=== PATIENT | female | born 1940 | race Caucasian/White ===

== ENCOUNTER → 2023-06-27 08:47 | Outpatient (REF) | payer OTHER, SELFPAY | LOC: HWRAD 08:47 | PROVIDERS: ATTENDING PHYSICIAN Urology; FAMILY PHYSICIAN Family Medicine | DX: R31.9 Hematuria, unspecified (principal); N39.0 Urinary tract infection, site not specified | CPT/HCPCS: 76770; 76856 ==

== ENCOUNTER → 2023-07-28 07:56 | Outpatient (REF) | payer OTHER, SELFPAY | LOC: HWRAD 07:56 | PROVIDERS: ATTENDING PHYSICIAN Internal Medicine Critical Care Medicine; FAMILY PHYSICIAN Family Medicine | DX: J84.9 Interstitial pulmonary disease, unspecified (principal) | CPT/HCPCS: 71250 ==

== ENCOUNTER → 2023-08-05 07:03 | Outpatient (REF) | payer OTHER, SELFPAY | LOC: HWRCS 07:03 | PROVIDERS: ATTENDING PHYSICIAN Internal Medicine Critical Care Medicine; FAMILY PHYSICIAN Family Medicine | DX: R06.02 Shortness of breath (principal) | CPT/HCPCS: 93306 ==

== ENCOUNTER → 2024-01-19 06:56 | Outpatient (REF) | payer OTHER, SELFPAY | LOC: HWRAD 06:56 | PROVIDERS: ATTENDING PHYSICIAN Internal Medicine Critical Care Medicine; FAMILY PHYSICIAN Family Medicine | DX: J84.9 Interstitial pulmonary disease, unspecified (principal) | CPT/HCPCS: 71250 ==

== ENCOUNTER → 2024-02-07 07:16 | Outpatient (REF) | payer OTHER, SELFPAY | LOC: DHCBC/DCA 07:16 | PROVIDERS: ATTENDING PHYSICIAN Nurse Practitioner; FAMILY PHYSICIAN Family Medicine | DX: R06.02 Shortness of breath (principal) | CPT/HCPCS: 78452; 93017; A9500; J2785 ==

== ENCOUNTER → 2024-06-14 06:59 | Outpatient (REF) | payer OTHER, SELFPAY | LOC: HWRAD 06:59 | PROVIDERS: ATTENDING PHYSICIAN Internal Medicine Critical Care Medicine; FAMILY PHYSICIAN Family Medicine | DX: J84.9 Interstitial pulmonary disease, unspecified (principal) | CPT/HCPCS: 71046 ==

== ENCOUNTER → 2024-06-18 07:54 | Outpatient (REF) | payer OTHER, SELFPAY | LOC: RST 07:54 | PROVIDERS: ATTENDING PHYSICIAN Internal Medicine Critical Care Medicine; FAMILY PHYSICIAN Family Medicine | DX: J84.10 Pulmonary fibrosis, unspecified (principal); K21.9 Gastro-esophageal reflux disease without esophagitis; R13.10 Dysphagia, unspecified | CPT/HCPCS: 74230; 92611 ==

== ENCOUNTER → 2024-07-23 07:25 | Outpatient (REF) | payer OTHER, SELFPAY | LOC: HWRAD 07:25 | PROVIDERS: ATTENDING PHYSICIAN Family Medicine | DX: F19.20 Other psychoactive substance dependence, uncomplicated (principal); M85.89 Other specified disorders of bone density and structure, multiple sites | CPT/HCPCS: 77080 ==

== ENCOUNTER → 2024-08-06 14:30 | Outpatient (REF) | payer OTHER, SELFPAY | LOC: HWRAD 14:30 | PROVIDERS: ATTENDING PHYSICIAN Physician Assistant Surgical; FAMILY PHYSICIAN Family Medicine | DX: M54.14 Radiculopathy, thoracic region (principal); M54.16 Radiculopathy, lumbar region | CPT/HCPCS: 72072; 72110 ==

== ENCOUNTER 2024-08-10 09:21 | Emergency (ER) | payer OTHER, SELFPAY ==
[2024-08-10 09:31] VITALS: BP 176/109
--- NOTE | 2024-08-10 10:09 | ED.GENMED ---
History of Present Illness
General
Chief Complaint: Back Pain
Source: patient
Exam Limitations: none
Time Seen by Provider: 08/10/24 09:56
Nursing documentation reviewed up to this point in time: agreed with
History of Present Illness
History of Present Illness:
84-year-old female with history of interstitial lung disease, overactive bladder, spinal fusion 2019 L3, 4, 5, S1, neurostimulator, left hernia repair presents for back pain that started 6 days ago, no relief with her usual pain meds. Called her
pain management (Dr. Davalos's office) and ordered out pt xray yesterday showing compression fracture L1.. Had out pt xray yesterday showing compression fracture L1 age indeterminate. Filled rx for Oxycodone 5/325 #20 tabs yesterday, Tramadol HCl
50 mg #30 tabs on 08/07.
Pt denies fever/chills. Denies recent fall. Denies abdominal pain.
States pain is stabbing, 01/25 Her last oxycodone was at 1:30 AM.
She states she has been constipated in the past due to her narcotic pain medicine and this pain feels worse and that
Has been able to ambulate w cane as usual
Pt was in pain management with Dr. Davalos in 2019 after her spinal fusions. She was taking narcotics and is familiar with narcotic induced constipation. She has not needed narcotics for pain for past few years.
She did contact his office last week rx for Tramadol given with no relief (she's had total of 2 doses) and saw PA there 4 days ago and Prescribe Oxycodone/acetaminophen 325 q 12 hour which she started yesterday and has had 2 doses.
Past History
Past History
ED Past Medical History: GERD, Other (Chronic low back pain, spinal fusion 2019 L3, 4, 5, S1) and Other (Interstitial lung disease, prolapsed uterus)
ED Past Surgical History: Orthopedic (Left knee replacement, lumbar spinal surgery) and Other (Left inguinal hernia repair, spinal fusion 2019, right knee replacement, )
Social History
Tobacco: Non-smoker
Personal:
Living: with family
Employment: Retired
Family History
Family History: Other (Noncontributory)
Review of Systems
Review of Systems
Allergies reviewed?: Yes
All Other Systems: ROS reviewed and negative except as documented in HPI and ROS
Constitutional: Denies fever or chills
ABD/GI: Reports constipated; Denies abdominal pain, nausea, vomiting or diarrhea
: Denies dysuria, frequency, incontinence or difficulty voiding
Musculoskeletal: Reports back pain
Skin: Reports no symptoms
Neurological: Reports no symptoms
Phy Exam
Physical Exam
Physical Exam:
GENERAL: Mild distress due to back pain. A&Ox3.
CONSTITUTIONAL: Afebrile.
EYES: clear, conjunctivae normal
ENMT: moist mucus membranes
RESPIRATORY: Regular respirations, nonlabored, lungs clear.
CARDIOVASCULAR: Regular rate and rhythm, no murmurs, no rubs.
GI: Soft, nontender, normal BS
MUSCULOSKELETAL: Unable to evaluate due to pain. Deferred until pain med effective. Well perfused. No edema
SKIN: Warm, dry, pink
PSYCH: Anxious mood and affect. Well kept, interactive and appropriate
NEUROLOGIC: Awake, alert and oriented. No focal neurological deficits. Sensation intact and equal bilateral LE's.
Course
Orders/Labs/Results
Orders:
Orders
08/10/24 10:28
Morphine Sulfate 4 mg IV NOW STA
Ondansetron Injectable [Zofran] 4 mg IV NOW STA
08/10/24 10:54
Magnesium Citrate [Citroma] 300 ml PO ONCE ONE
08/10/24 13:02
Morphine Sulfate 2 mg IV NOW STA
Vital Signs
Initial and Last Documented VS:
Initial Vital Signs
Temp Pulse Resp BP Pulse Ox
97.6 F 95 16 176/109 97
08/10/24 09:31 08/10/24 09:31 08/10/24 09:31 08/10/24 09:31 08/10/24 09:31
Last Documented Vital Signs
Temp Pulse Resp BP Pulse Ox
97.6 F 74 16 148/76 99
08/10/24 09:31 08/10/24 12:46 08/10/24 12:46 08/10/24 12:46 08/10/24 12:46
MDM/Problems Addressed
Differential Diagnosis Includes:
New compression fx L1, discitis, herniated disc, constipation, AAA
MDM/Problems Addressed:
84-year-old female with history of interstitial lung disease, overactive bladder, spinal fusion 2019 L3, 4, 5, S1, neurostimulator, left hernia repair presents for back pain that started 6 days ago, no relief with her ususal pain meds. Called her
pain management (Dr. Davalos's office) and ordered out pt xray yesterday showing compression fracture L1. Filled rx for Oxycodone 5/325 #20 tabs yesterday, Tramadol HCl 50 mg #30 tabs on 08/07.
Pt denies fever/chills. Denies recent fall. Denies abdominal pain.
States pain is stabbing, 01/25 Her last oxycodone was at 1:30 AM.
She states she has been constipated in the past due to her narcotic pain medicine and this pain feels worse and that
Patient not anticoagulated. No infectious symptoms. No neurological deficits
Pt was in pain management with Dr. Davalos in 2019 after her spinal fusions. She was taking narcotics and is familiar with narcotic induced constipation. She has not needed narcotics for pain for past few years.
She did contact his office last week rx for Tramadol given with no relief (she's had total of 2 doses) and saw PA there 4 days ago and Prescribe Oxycodone/acetaminophen 325 q 12 hour which she started yesterday and has had 2 doses.
Patient is on chronic steroids 40 mg daily since May due to her lung disease, this may very well contribute to her compression fracture as she has had no recent trauma
Outpatient L-spine x-ray report from 08/06/2024 reviewed: IMPRESSION:
Postsurgical changes at L3, L4, L5, and S1.
Intact orthopedic hardware.
Severe osseous demineralization involving L3, L4, and L5, with prominent osseous lucency, which limits assessment for vertebral integrity.
Age indeterminate, though interval development of moderate superior endplate compression deformity of L1.
Advanced, progressive degenerative disc space narrowing at T11-12, T12-L1 and L2-3. L2-3 progressive endplate sclerosis.
Constipation with moderate colonic fecal burden.
10:45 AM:
Prior to pain medication, patient out of bed and ambulated to bathroom and back with her cane steadily with pain and review of above history, patient clearly needs more
Pain medication. She is afraid of becoming addicted. Explained to her and daughter the safe amounts to take
Her pain should be relieved somewhat after she has moved her bowels.
Rectal exam: very little stool in rectal vault, Given a dose of mag citrate here
11:15:
Message sent to orthopedic Dr. Long to get pt in sooner rather than later.
12:40 p.m.
Pt daughter Julia called and has appointment with Dr. Long on 08/15. She has #18 Hydrocodone left. Instructed to she could take in q8 hr if needed and two if needed forsevere pain.
She has Miralax at home she will use. She is taking a stool softener and will get more Mag Citrate if needed.
At discharge daughter informed me that Dr. Long's office called and had a cancellation so pt will be seen on 08/13
*Critical Care Note
Total Time (30-74mins, 75-104mins- exclusive of procedures): Not Applicable
ED Attending Note
-
Portions of this chart may have been created with voice recognition software.� Occasional wrong word or��sound alike� substitutions may have occurred due to the inherent limitations of voice recognition software.
Discharge Plan
Departure
Patient Disposition: Home (Routine Discharge)
Date of Disposition: 08/10/24
Time of Disposition: 12:22
Patient with high blood pressure during this ER visit?: No
Condition: Fair
Discharge Problem:
Compression fracture of L1 vertebra, Constipation
Instructions: Vertebral compression fracture, Vertebroplasty and kyphoplasty, Managing constipation from your medicines, Constipation in adults - ED discharge instructions
Prescriptions:
No Action
tiotropium bromide [Spiriva with HandiHaler] 18 MCG capsule, w/inhalation device
2 puff IH DAILY
fluticasone furoate-vilanterol [Breo Ellipta] 1 EACH blister with device
1 puff IH DAILY
multivitamin 1 EACH tablet
1 tab PO DAILY
cholecalciferol (vitamin D3) 2,000 UNIT tablet
2,000 unit PO DAILY
polyethylene glycol 3350 17 GRAMS powder in packet
1 packet PO DAILY
mupirocin 1 APPLIC ointment
1 applic intranasal BID Qty: 1 0RF
Patient Comments:
last dose was pm of 04/29/21
celecoxib 200 MG capsule
200 mg PO DAILY Qty: 30 0RF
Rx Instructions:
Take with food.
Do not take within 2 hours of Aspirin.
aspirin 325 MG tablet
325 mg PO DAILY Qty: 28 0RF
Rx Instructions:
Take daily x4 weeks for blood clot prevention.
magnesium hydroxide 30 ML suspension
30 ml PO DAILYPRN PRN (Reason: constipation) Qty: 7 0RF
Rx Instructions:
Take as needed for constipation unrelieved by Colace and Miralax.
pantoprazole 40 MG tablet,delayed release (DR/EC)
40 mg PO DAILY Qty: 30 0RF
Rx Instructions:
Take daily while on Celebrex.
docusate sodium 100 MG capsule
100 mg PO BID 0RF
acetaminophen 500 MG tablet
1,000 mg PO Q6H Qty: 60 0RF
Rx Instructions:
Do not exceed >4000 mg daily.
oxycodone 5 MG tablet
5 mg PO Q4HPRN PRN (Reason: moderate-severe pain) Qty: 30 0RF
Rx Instructions:
1 tab moderate pain or 2 if pain severe
Dx total joint replacement
ongoing therapy
Referrals:
Carmen Ayala MD [Family Provider] -
Alexei Ruiz MD [Active] - Next open appointment
Activity Restrictions/Additional Instructions:
As we discussed, you may take Hydrocodone 1 tablet every 8 hours instead of every 12 as recently ordered, if the pain is severe, take two tablets. You shuld have enough to get you through to your appointment
You may also take Tylenol (Acetaminophen 1000 mg twice a day)
Call Dr. Davalos's office if you need more pain medication.
Keep your appointment on 08/[address] Long.
You were given Magnesium Citrate here to help you move your bowels.
Interventions
Interventions:
*Risk Screen - Suicide Last Done: 08/10/24 12:46
*General Assessment Last Done: 08/10/24 13:21
*Neglect/Abuse Screening Last Done: 08/10/24 12:46
*ED- Fall Risk Assessment Last Done: 08/10/24 13:21
*ED COVID-19 Vaccine History Last Done: 08/10/24 13:21
*Nursing Disposition Last Done: 08/10/24 13:21
ED-Musculoskeletal Assessment Last Done: 08/10/24 12:02
Discharge Date and Time
Discharge Date/Time: 08/10/24 13:21
Print Language: CITIZEN OF [place]
[2024-08-10] MEDS: ZOFRAN 4 MG IV (10:58)
[2024-08-10] MEDS: MORPHINE SULFATE 4 MG IV (10:59)
[2024-08-10] MEDS: CITROMA 300 ML PO (11:06)
[2024-08-10 12:46] VITALS: BP 148/76
[2024-08-10] MEDS: MORPHINE SULFATE 2 MG IV (13:05)
== END 2024-08-10 13:21 | disposition home or self-care (01) ==
LOC: EMR 09:21
PROVIDERS: EMERGENCY PHYSICIAN Emergency Medicine; FAMILY PHYSICIAN Family Medicine
DX: M48.56XA Collapsed vertebra, not elsewhere classified, lumbar region, initial encounter for fracture (principal); K59.00 Constipation, unspecified; N32.81 Overactive bladder
CPT/HCPCS: 99284; 96374; 96375; 96376

== ENCOUNTER → 2024-08-15 07:42 | Outpatient (REF) | payer OTHER, SELFPAY | LOC: HWRAD 07:42 | PROVIDERS: ATTENDING PHYSICIAN Psychiatry & Neurology Neurology; FAMILY PHYSICIAN Family Medicine | DX: M54.6 Pain in thoracic spine (principal); M54.14 Radiculopathy, thoracic region; M54.50 Low back pain, unspecified; M54.17 Radiculopathy, lumbosacral region | CPT/HCPCS: 72128; 72131 ==

== ENCOUNTER → 2024-08-23 08:05 | Outpatient (REF) | payer OTHER, SELFPAY | LOC: HWRAD 08:05 | PROVIDERS: ATTENDING PHYSICIAN Internal Medicine Critical Care Medicine; FAMILY PHYSICIAN Family Medicine | DX: J84.9 Interstitial pulmonary disease, unspecified (principal) | CPT/HCPCS: 71250 ==

== ENCOUNTER 2024-09-21 19:17 | Observation (INO) | payer OTHER, SELFPAY ==
[2024-09-21] VITALS (12 sets, daily range): BP systolic 131–181; BP diastolic 78–104; BMI 31.8; BMI 30.5
[2024-09-21 12:36] LABS: % Basophils 0.6 % (0-2); % Eosinophils 0.1 % (0-6); % Immature Granulocytes 3.9 % (0-0.5); % Lymphocytes 13.5 % (20.5-51.1); % Monocytes 5.6 % (1.7-9.3); % Neutrophils 76.3 % (42.2-75.2); Absolute Basophils 0.1 10^3/uL (0-0.2); Absolute Immature Granulocytes 0.3 10^3/uL (0-0.05); Absolute Lymphocytes 1.1 10^3/uL (1.2-3.4); Absolute Monocytes 0.5 10^3/uL (0.1-0.6); Absolute Neutrophils 6.3 10^3/uL (1.4-6.5); Hematocrit 44.8 % (37.0-47.0); Hemoglobin 15.1 g/dL (12.0-16.0); Mean Corp Hgb Conc. 33.7 g/dL (33.0-37.0); Mean Corpuscular Hgb 32.9 pg (27.0-31.0); Mean Corpuscular Volume 97.6 fL (81.0-99.0); Mean Platelet Volume 8.5 fL (7.4-10.4); Nucleated Red Blood Cells % 0 %; Platelet Count 300 10^3/uL (130-400); Red Blood Cell Count 4.59 10^6/uL (4.20-5.40); Red Cell Dist. Width 14.6 % (11.5-14.5); White Blood Cell Count 8.2 10^3/uL (4.8-10.8)
--- NOTE | 2024-09-21 12:47 | ED.GENMED ---
History of Present Illness
General
Chief Complaint: Breathing Problem
Source: patient and family (Son)
Exam Limitations: none
Time Seen by Provider: 09/21/24 12:31
History of Present Illness
History of Present Illness:
84-year-old female complaining of transient unusual shortness of breath this morning. No chest pain no pleuritic pain. Shortness of breath is back to baseline. She is chronic shortness of breath from her pulmonary fibrosis. However this
shortness of breath seems somewhat unusual. Currently improved and at baseline. Complaining of her ongoing back pain. Was supposed to start a new pain management medication from her pain management physician but has not started it yet. The back
pain is unfortunately ongoing and stable. No new neurologic symptoms. No fever.
Past History
Past History
ED Past Medical History: GERD, Other (Chronic low back pain, spinal fusion 2020 L3, 4, 5, S1) and Other (Interstitial lung disease, prolapsed uterus)
ED Past Surgical History: Orthopedic (Left knee replacement, lumbar spinal surgery) and Other (Left inguinal hernia repair, spinal fusion 2019, right knee replacement, )
Social History
Tobacco: Non-smoker
Personal:
Living: with family
Employment: Retired
Family History
Family History: Other (Noncontributory)
Review of Systems
Review of Systems
All Other Systems: Not applicable
Constitutional: Denies fever or chills
Cardiac: Denies chest pain or syncope
Phy Exam
Physical Exam
Physical Exam:
GENERAL: Alert and oriented in no apparent distress
EYE: Orbits normal.
NECK: Supple. Somewhat cushingoid cheeks
CARDIAC: Regular rate and rhythm without any obvious murmurs.
LUNGS: No respiratory distress. Dry crackles in the bases
ABDOMEN: Soft, without focal tenderness or distention
NEUROLOGICAL: Alert and oriented , grossly non-focal
SKIN: Warm and dry, no rash or lesion, no discoloration, skin intact.
MUSCULOSKELETAL: No edema,no deformity.Good color. Tenderness over the lower midline spinal area. No swelling.
PSYCH: Normal and appropriate interaction.
Scores
Heart Failure Risk
Heart Failure Risk Score: Not Applicable
Course
Orders/Labs/Results
Orders:
Orders
09/21/24 12:26
CMP [Comprehensive Metabolic Panel] Urgent
Complete Blood Count/With Diff Urgent
09/21/24 12:46
IV Insert/Care/Rem.- Treatment PRN
0.9% Sodium Chloride 500 ml [Nss] 500 ml IV BOLUS
09/21/24 12:47
Electrocardiogram (*1) Stat
Reason for Study: Other
Other Reason for Exam: chest pain
CT Chest PE Study Urgent
Comment:
Reason For Exam: Unusual shortness of breath. History of pulmonary
Cardiac Monitoring- Treatment ONCE
EKG- Treatment ONCE
09/21/24 12:51
Troponin I Urgent
09/21/24 13:34
HYDROmorphone [Dilaudid] 0.5 mg IV NOW STA
09/21/24 13:38
CT Lumbar Spine W/o Iv Contras Urgent
Comment:
Reason For Exam: Increased pain/known compression fracture
09/21/24 15:40
HYDROmorphone [Dilaudid] 1 mg IV NOW STA
09/21/24 17:08
Hydrocodone 5/APAP 325 [[place] 5/325] 2 tablet PO NOW STA
09/21/24 18:29
Admit/Transfer Patient As Directed
Co-Sign Provider:
Level of Care: Observation services
Assign to:: Medical/Surgical
Physician / Group: celestine rivera
Diagnosis: Intractable back pain T10 compression fracture severe
Code Status As Directed
Resuscitation Status: Full Code
Troponin I Urgent
09/21/24 18:34
PRN Pain Medication Management As Directed
May give lesser potent ordered pain med per pt: Yes
preference::
Protocol:: Medication orders for pain may be administered in a
manner that supports deferring to patient preference
when the pt is:
- Requesting an ordered lesser potent pain medication.
Least to most potent pain medications are defined
as: acetaminophen < NSAID < tramadol < opioids
(morphine, oxycodone, hydromorphone).
- Requesting a lesser dose of the same medication IF
ORDERED.
- Requesting a less intrusive route of administration
if both routes are prescribed by the provider (PO <
IV).
Abnormal Lab Results
09/21/24 09/21/24
12: 12:51
MCH 32.9 H pg
(27.0-31.0)
RDW 14.6 H %
(11.5-14.5)
Abs Immat Gran (auto) 0.3 H 10^3/uL
(0-0.05)
Absolute Lymphs (auto) 1.1 L 10^3/uL
(1.2-3.4)
Immature Gran % 3.9 H %
(0-0.5)
Neutrophils % 76.3 H %
(42.2-75.2)
Lymphocytes % 13.5 L %
(20.5-51.1)
BUN 20 H mg/dl
(7-17)
Glucose 122 H mg/dl
(70-99)
Troponin I 0.035 H* ng/ml
09/21/24 12:26
09/21/24 12:26
Vital Signs
Initial and Last Documented VS:
Initial Vital Signs
Temp Pulse Resp BP Pulse Ox
97.5 F 101 22 153/102 97
09/21/24 11:31 09/21/24 11:31 09/21/24 11:31 09/21/24 11:31 09/21/24 11:31
Last Documented Vital Signs
Temp Pulse Resp BP Pulse Ox
97.5 F 79 22 144/93 95
09/21/24 11:31 09/21/24 18:00 09/21/24 11:31 09/21/24 18:00 09/21/24 18:00
MDM/Problems Addressed
Differential Diagnosis Includes:
Patient here primarily for this transient unusual shortness of breath is back to baseline. Doubt serious etiology and likely related to her chronic pain and pulmonary fibrosis however cardiac and other significant lung etiologies need to be ruled
out. She feels CT scan would be the best test along with cardiac testing. As for her pain this is at baseline and unfortunately ongoing and stable. She follows with pain management for this issue
*Radiology
Radiology exam reviewed: radiology read reviewed (Progressive compression fracture T10. L1 fracture stable. Pulmonary fibrosis. No PE.)
*Pulse Oximetry
Patient hypoxic: no (93%)
*Critical Care Note
Total Time (30-74mins, 75-104mins- exclusive of procedures): Not Applicable
Data Reviewed
Review of Other/Old Records Reveals: Labs, Records, Radiology Studies and Testing
Update Note
Update Note:
From a respiratory standpoint patient has remained stable and no serious etiology has been found. She is having progression of her back pain and progression of T10 compression fracture. Will be admitted for pain management.
ED Attending Note
-
Portions of this chart may have been created with voice recognition software.� Occasional wrong word or��sound alike� substitutions may have occurred due to the inherent limitations of voice recognition software.
Discharge Plan
Departure
Patient Disposition: Admit
Date of Disposition: 09/21/24
Time of Disposition: 17:55
Presentation/result/management discussed w/ accepting MD/DO: Hospitalist
Discharge Problem:
Progressive back pain, Progress T10 compression fracture, Stable L1 compression fracture, Transient shortness of breath, Pulmonary fibrosis
Prescriptions:
No Action
azithromycin 250 mg Tablet
250 mg PO MOWEFR
prednisone 20 mg Tablet
20 mg PO DAILY
Patient Comments:
take 20mg until next appointment
alendronate [Fosamax] 70 mg Tablet
70 mg PO SA
hydrocodone-acetaminophen 10-325 mg Tablet
1 tab PO Q6HPRN PRN (Reason: severe pains)
calcium polycarbophil [FiberCon] 625 mg Tablet
625 mg PO BID
rosuvastatin [Crestor] 10 mg Tablet
5 mg PO DAILY
Ofev 150 mg Capsule
150 mg PO Q12H
Journavx 50 mg Tablet
50 mg PO BID
Referrals:
Carmen Ayala MD [Family Provider, Family Practice]
Interventions
Interventions:
*Risk Screen - Suicide Last Done: 09/21/24 11:31
*General Assessment Last Done: 09/21/24 12:13
*Neglect/Abuse Screening Last Done: 09/21/24 11:31
*ED- Fall Risk Assessment Last Done: 09/21/24 12:13
*ED COVID-19 Vaccine History Last Done: 09/21/24 12:13
ED- Cardiac Assessment Last Done: 09/21/24 12:13
ED- Pulmonary Assessment Last Done: 09/21/24 12:13
Discharge Date and Time
Print Language: THAI
[2024-09-21] MEDS: NSS 500 IV (12:51)
[2024-09-21 12:59] LABS: ALT (SGPT) 22 U/L (0-35); AST (SGOT) 23 U/L (14-36); Albumin 4.2 g/dl (3.5-5.0); Alkaline Phosphatase 90 U/L (38-126); Blood Urea Nitrogen 20 mg/dl (7-17); Calcium 9.4 mg/dl (8.4-10.2); Carbon Dioxide 24 mmol/L (22-30); Chloride 104 mmol/L (98-107); Estimated Creatinine Clearance 48 ml/min; Glucose 122 mg/dl (70-99); Potassium 4.2 mmol/L (3.5-5.1); Sodium 137 mmol/L (135-145); Total Bilirubin 0.8 mg/dl (0.2-1.3); Total Protein 7.3 g/dl (6.3-8.2); eGFR > 60.00
[2024-09-21] MEDS: DILAUDID 0.5 MG IV (13:38)
[2024-09-21 14:18] LABS: Troponin I 0.035 ng/ml
[2024-09-21] MEDS: DILAUDID 1 MG IV ×2 (16:40→20:48)
[2024-09-21] MEDS: NORCO 5/325 2 TABLET PO (17:22)
--- NOTE | 2024-09-21 18:26 | HPS.HSE ---
Family Physician
-
Family Physician: Carmen Ayala
Chief Complaint
-
Back pain
History of Present Illness
This is a 83-year-old female with past medical history of idiopathic pulmonary fibrosis on chronic prednisone and currently on a taper, hyperlipidemia, osteoporosis, chronic pain with history of compression fractures of the thoracic and lumbar spine
who presents to the emergency department with acute episode of back pain and then some shortness of breath which she described as a panic episode.
Patient reported that she been doing well from the perspective of pain for the last few weeks and had cut down on her pain medications until very recently. She says over the last few days she has had worsening back pain. She does see a pain
specialist and was prescribed a new medication called Hysingla which is extended release hydrocodone but she has not started taking that medication yet. She also has not pain specialist evaluated for injection which she she states that was not
approved due to risk factors.
Patient reported that she was sitting out today in the sun and then felt worsening back pain. The pain is localized to the middle of her back without any radiation down the legs. She denies any numbness tingling. She denies any bladder or bowel
issues. She denies any new trauma. She denies any cough. She denies wheezing or shortness of breath. She is not on oxygen. She felt that she panicked and complained of shortness of breath when I saw her she says her breathing is completely back
to baseline and she was mostly complaining of pain. She denies any chest pain. She denies feeling lightheaded or dizzy. She denies having any palpitations.
On arrival in the emergency department patient was satting 95% on room air. Blood pressure was 140/90 with a pulse of 79. She was afebrile. ECG shows a normal sinus rhythm rate of 83 with left bundle branch block. The left bundle is relatively
new compared to prior ECG but this has been noted on a prior stress test last year.
Patient's troponin was 0.035.
She had CBC that was normal, electrolytes were all normal. BUN/creatinine were normal.
She had a CT angio of the chest which was negative for pulmonary embolism. There was no definite superimposed disease on her chronic pulmonary fibrosis. It also showed progression of the T10 compression fracture with retropulsion of fracture
fragments. There is also lumbar compression fracture which appears stable compared to prior.
Medical History
Past Medical History
Past Medical History: Reports GERD and Other
Additional Past Medical History:
Pulmonary fibrosis
Chronic low back pain
Osteoporosis
Past Surgical History: Reports Orthopedic (Left knee replacement, lumbar spinal surgery spinal fusion of L3-4-5 and S1, right knee replacement) and Other (Left inguinal hernia repair)
Social History
Tobacco: Non-smoker
Alcohol: None
Drug: None
Personal: Single
Living: With Family
Family History
Family History: Not pertinent
Allergies / Home Medications
Allergies reflects when Allergies were last updated in [facility].
Home Medications with original date entered in [facility]
Allergy/Medication List:
Allergies
Allergy/AdvReac Type Severity Reaction Status Date / Time
fentanyl Allergy Vomiting Verified 09/21/24 11:31
Home Medications
alendronate 70 mg tablet (Fosamax) 70 mg PO SA 09/21/24
azithromycin 250 mg tablet 250 mg PO MOWEFR 09/21/24
calcium polycarbophil 625 mg tablet (FiberCon) 625 mg PO BID 09/21/24
hydrocodone 10 mg-acetaminophen 325 mg tablet 1 tab PO Q6HPRN PRN severe pains 09/21/24
nintedanib 150 mg capsule (Ofev) 150 mg PO Q12H 09/21/24
prednisone 20 mg tablet 20 mg PO DAILY 09/21/24
rosuvastatin 10 mg tablet (Crestor) 5 mg PO DAILY 09/21/24
suzetrigine 50 mg tablet (Journavx) 50 mg PO BID 09/21/24
Review of Systems
-
History Source: Patient
Constitutional: Reports No Symptoms
EENT: Reports No Symptoms
Respiratory: Reports No Symptoms
Cardiac: Reports No Symptoms
Abdomen/GI: Reports No Symptoms
: Reports No Symptoms
Musculoskeletal: Reports Joint Pain
Skin: Reports No Symptoms
Neurological: Reports No Symptoms
Endocrine: Reports No Symptoms
Hematologic/Lymphatic: Reports No Symptoms
Psych: Reports No Symptoms
Physical Exam
Vital Signs
Vital Signs
Temp Pulse Resp BP Pulse Ox
97.5 F 79 22 144/93 95
09/21/24 11:31 09/21/24 18:00 09/21/24 11:31 09/21/24 18:00 09/21/24 18:00
Physical Exam
General: Well Developed, Well Nourished and No Apparent Distress
HEENT: NormoCephalic, Moist mucous membranes and Atraumatic
Respiratory: Rales
Cardiac: S1/S2 and Regular Rhythm; No Murmur or Rub
GI: Soft, Non Tender, Non Distended and Normal Bowel Sounds; No Organomegaly
Rectal: Deferred by Provider
Musculoskeletal: No Clubbing, No Cyanosis and No Edema
Skin: No Rash
Neuro: Nonfocal/grossly intact
Laboratory Results
-
09/21/24 12:26
09/21/24 12:26
Laboratory Results
Total Bilirubin 0.8 mg/dl (0.2-1.3) 09/21/24 12:26
AST 23 U/L (14-36) 09/21/24 12:26
ALT 22 U/L (0-35) 09/21/24 12:26
Alkaline Phosphatase 90 U/L (38-126) 09/21/24 12:26
Troponin I 0.035 ng/ml H* 09/21/24 12:51
Data Reviewed
-
CT Scan: Report Reviewed by me
Medical Tests (Nuc Med, Echo, EKG etc): Image Personally Visualized and interpreted
Lab Data: Labs Reviewed by me
Old Records: Reviewed
Impression/Plan
-
IMPRESSION:
84-year-old female with urinary pulmonary fibrosis on chronic prednisone with resultant osteoporosis and chronic back pain for which she is on hydrocodone at home and recently prescribed Hysingla ER coming to the ED for exacerbation of chronic back
pain and found to have progression of T10 compression fracture. Unfortunately patient likely has osteoporosis and is high risk for compression fractures in the setting of chronic prednisone use for her pulmonary fibrosis. Breathing is back to
baseline. ECG unchanged from prior. Trop slightly increased but patient without any cardiac symptoms. CT chest without acute disease.
PLAN:
1. Back pain - Subacute T10 compression fracture.
- admit to observation (tele)
- needs ongoing opioid analgesics so will continue with oral and IV opioids as needed
- high risk for stomach ulcer given prednisone, will hold off NSAIDs for now
- topical lidocaine
- PT consult.
2. Pulmonary fibrosis - stable, no worsening disease or interval infection
- continue prednisone 10 bid
- continue azithromycin 250 mg M//
- patient does not want to start nintedanib until seeing pulmonary on 10/01, I advised her to call them to discuss
3. Troponin elevation - No chest pain, no acute ECG changes, breathing back to normal. Perfusion stress imaging in January negative for reversible/non-reversible myocardial changes and low risk. No prior cardiac disease
- trend troponins for now
- treat pain
- consider cardiology consult if up trending
4. HLD
- continue her statin
DVT PPX - lovenox sq
Code status - Intubation/CPR for non-pulmonary etiology of arrest. No intubation for a primary pulmonary process.
[2024-09-21 19:23] LABS: Troponin I 0.051 ng/ml
[2024-09-21] MEDS: PEPCID 20 MG PO (20:50)
[2024-09-21] MEDS: DELTASONE 20 MG PO (20:50)
[2024-09-21] MEDS: FIBERCON 625 MG PO (20:54)
[2024-09-21] MEDS: SENOKOT-S 1 TABLET PO (20:54)
[2024-09-21] MEDS: ZITHROMAX PO (21:12)
[2024-09-22] MEDS: DILAUDID 1 MG IV ×4 (00:44→15:25)
[2024-09-22 03:15] VITALS: BP 147/101
[2024-09-22] MEDS: ATIVAN 0.25 MG PO (03:15)
[2024-09-22] MEDS: FOSAMAX 70 MG PO (06:01)
[2024-09-22 07:00] VITALS: BP 130/84
[2024-09-22] MEDS: LIDOCAINE 4% PATCH 1 PATCH TOPICAL (08:09)
[2024-09-22] MEDS: FIBERCON 625 MG PO ×2 (08:10→20:13)
[2024-09-22] MEDS: DELTASONE 20 MG PO ×2 (08:10→20:09)
[2024-09-22] MEDS: CRESTOR 5 MG PO (08:10)
[2024-09-22] MEDS: PEPCID 20 MG PO (08:10)
[2024-09-22] MEDS: SENOKOT-S 1 TABLET PO ×2 (08:10→20:13)
[2024-09-22] MEDS: MIRALAX 17 GRAMS PO (08:15)
[2024-09-22 08:25] LABS: % Basophils 0.9 % (0-2); % Eosinophils 0.1 % (0-6); % Immature Granulocytes 3.9 % (0-0.5); % Lymphocytes 19.8 % (20.5-51.1); % Monocytes 9.2 % (1.7-9.3); % Neutrophils 66.1 % (42.2-75.2); Absolute Basophils 0.1 10^3/uL (0-0.2); Absolute Immature Granulocytes 0.3 10^3/uL (0-0.05); Absolute Lymphocytes 1.5 10^3/uL (1.2-3.4); Absolute Monocytes 0.7 10^3/uL (0.1-0.6); Absolute Neutrophils 4.9 10^3/uL (1.4-6.5); Hematocrit 43.1 % (37.0-47.0); Hemoglobin 14.4 g/dL (12.0-16.0); Mean Corp Hgb Conc. 33.4 g/dL (33.0-37.0); Mean Corpuscular Hgb 32.1 pg (27.0-31.0); Mean Platelet Volume 8.5 fL (7.4-10.4); Nucleated Red Blood Cells % 0 %; Platelet Count 301 10^3/uL (130-400); Red Blood Cell Count 4.49 10^6/uL (4.20-5.40); Red Cell Dist. Width 14.5 % (11.5-14.5); White Blood Cell Count 7.4 10^3/uL (4.8-10.8)
[2024-09-22 08:45] LABS: ALT (SGPT) 20 U/L (0-35); AST (SGOT) 21 U/L (14-36); Alkaline Phosphatase 84 U/L (38-126); Blood Urea Nitrogen 16 mg/dl (7-17); Calcium 9.4 mg/dl (8.4-10.2); Carbon Dioxide 24 mmol/L (22-30); Chloride 104 mmol/L (98-107); Estimated Creatinine Clearance 54 ml/min; Glucose 177 mg/dl (70-99); HDL Cholesterol 69 mg/dl; LDL Cholesterol, Calculated 121 mg/dl; Potassium 4.2 mmol/L (3.5-5.1); Sodium 136 mmol/L (135-145); Total Cholesterol 211 mg/dl (50-199); Total Protein 6.9 g/dl (6.3-8.2); Triglyceride 107 mg/dl (10-149); Very Low Density Lipoprotein 21 mg/dl (0-30); eGFR > 60.00
--- NOTE | 2024-09-22 10:51 | CM ---
CM reviewed chart, patient seen bedside with son, initial assessment completed. Patient resides in a [facility] style home with her and two daughters, few steps to enter. Patient has a cane, walker, wheelchair, walk in shower with grab bars.
Patient reports VN in past (4-5 years ago), denies SNF. Patient confirms PCP Carmen Ayala, [facility], confirms prescription coverage. Patient denies insecurities at home. [employer] form reviewed, provided with copy, placed in
chart. CM will continue to follow for all discharge planning needs.
Plan; home with family, watch for VN needs.
[2024-09-22 11:00] VITALS: BP 166/110
--- NOTE | 2024-09-22 11:12 | CON.CAR ---
Addendum entered and electronically signed by Ganesh Barroso MD 09/22/24 14:09:
Patient seen and examined in collaboration with PGY 2 resident; agree with below.
- 84-year-old female with hypertension and interstitial pulmonary fibrosis/asthma presenting with back pain; found to have worsening T10 compression fracture.
- Patient's cardiac troponin was minimally elevated at 0.051 in the setting of uncontrolled hypertension (blood pressure 153/102 on admission); likely acute nonischemic myocardial injury in the setting of uncontrolled hypertension.
- Physical examination: Heart regular rate and rhythm, lungs diffuse crackles (ILD), trace edema.
- Sinus tachycardia most likely secondary to underlying pain; nonetheless, will start Cardizem CD 120 mg daily (will avoid beta-jaylyn due to underlying lung disease)--this will also help with blood pressure.
- Echocardiogram on Tuesday.
- residential monitor; will follow.
Original Note:
Documented by User: Gary Rosa MD, Resident 09/22/24 11:31
Consultation
Consultation Request
Date/Time Consultation Requested: 09-21-24
Date/Time Consultation Performed: 09-22-24
Requesting Provider: Luanne Hightower
Performing Provider: Dr. Ganesh Barroso
Reason for Consultation: elevated troponin
Medical History
-
Chief Complaint: Back pain
History of Present Illness:
Sandrita Jimenez, 84-year-old female with idiopathic pulmonary fibrosis on chronic prednisone, osteoporosis, subacute compression fracture of the vertebra and primary hypertension, is admitted to the hospital for evaluation and management of acute on
chronic back pain. She has IPF and has been on prednisone for the past few months and has known osteoporosis. She was sitting on her porch when she had acute worsening of her back pain, where she has known vertebral compression fracture. In the
hospital, CT showed severe compression fracture of T10 with continued progression of loss of height. She was also found to have minimally elevated troponin. Cardiology was consulted for further evaluation.
Past Medical History
Past Medical History: GERD, HTN, Hypercholesterolemia and Other (idiopathic pulmonary fibrosis)
Past Surgical History: Other (Left knee replacement, lumbar spinal surgery spinal fusion of L3-4-5 and S1, right knee replacement; Left inguinal hernia repair)
Social History
Tobacco: Non-Smoker
Alcohol: None
Drug: None
Employment: Retired
Family History
Family History: Reviewed & Not Pertinent
Allergies / Home Medications
Allergy/AdvReac Type Severity Reaction Status Date / Time
fentanyl Allergy Vomiting Verified 09/21/24 11:31
�Medication �Instructions �Recorded �Confirmed �Type
alendronate 70 mg tablet (Fosamax) 70 mg PO SA OSTEOPOROSIS 09/21/24 09/21/24 History
azithromycin 250 mg tablet 250 mg PO MOWEFR Lung/Breathing 09/21/24 09/21/24 History
Issues
calcium polycarbophil 625 mg 625 mg PO BID Constipation 09/21/24 09/21/24 History
tablet (FiberCon)
hydrocodone 10 mg-acetaminophen 1 tab PO Q6HPRN PRN severe pains 09/21/24 09/21/24 History
325 mg tablet
nintedanib 150 mg capsule (Ofev) 150 mg PO Q12H Lung/Breathing 09/21/24 09/21/24 History
Issues
prednisone 20 mg tablet 20 mg PO BID INFLAMMA 09/21/24 09/21/24 History
rosuvastatin 10 mg tablet (Crestor) 5 mg PO DAILY High Cholesterol 09/21/24 09/21/24 History
suzetrigine 50 mg tablet (Journavx) 50 mg PO BID Pain 09/21/24 09/21/24 History
Review of Systems
-
History Source: Patient
All other systems: Negative unless noted
Constitutional: Sleep Disturbance
EENT: No Symptoms
Respiratory: No Symptoms
Cardiac: No Symptoms
Abdomen/GI: No Symptoms
: No Symptoms
Musculoskeletal: Other (back pain)
Skin: No Symptoms
Neurological: No Symptoms
Endocrine: No Symptoms
Hematologic/Lymphatic: No Symptoms
Physical Exam
Vital Signs
Temp Pulse Resp BP Pulse Ox
97.4 F 106 18 130/84 98
09/22/24 07:00 09/22/24 07:00 09/22/24 07:00 09/22/24 07:00 09/22/24 07:00
Lab Results
09/22/24 08:06
09/22/24 08:06
Troponin I 0.050 ng/ml H* 09/22/24 00:42
Physical Exam
General: No Apparent Distress and Comfortable
HEENT: Normocephalic, Anicteric, Moist Mucous Membranes and Atraumatic
Respiratory: Crackles (BL) and Non Labored Respirations
Cardiac: S1/S2, Regular Rhythm and Other (tachycardia)
GI: Soft and Non Tender
Genito-urinary: No Costovertebral Tender
Musculoskeletal: No Clubbing, No Cyanosis and Edema (BL LE trace)
Neuro: Awake, Alert, Oriented, No Motor Deficits and Nonfocal/Grossly Intact
Hematologic/Lymphatic: No Lymphadenopathy
Psych: Calm
Impression / Plan
-
Non-ischemic myocardial injury
Secondary to hypertensive urgency/tachycardia
- Troponin peaked at 0.051 on 09-21-24.
- Blood pressure elevated on admission; also tachycardic.
- Likely causing the minimal troponin elevation.
- Still hypertensive/tachycardic; possibly from the uncontrolled pain.
- Will start diltiazem 120 mg once a day.
Hyperlipidemia
- Continue statin.
Other medical problems:
Idiopathic pulmonary fibrosis
Severe T10 compression fracture
Osteoporosis
GERD

Documented by User: Ganesh Barroso MD 09/22/24 14:05
Data Reviewed
-
EKG: Report Reviewed by me (Sinus rhythm at 83 bpm with left bundle branch block.)
Medical Tests (Nuc Med, Echo etc): Report Reviewed by me (Echocardiogram (08/05/23): LVEF 50-55%; mild MR, mild TR, PASP 30 mmHg.)
Labs: Labs Reviewed by me
[2024-09-22] MEDS: CARDIZEM CD 120 MG PO (11:55)
[2024-09-22] MEDS: DILAUDID 0.5 MG IV ×2 (12:05→20:17)
--- NOTE | 2024-09-22 12:26 | W.PN.HOSP.TC ---
Today's Communication/Plan
-
pain control
PT/OT
apprec cards
Assessment / Plan
Assessment / Plan
pt is an 84 year old female
Back pain - Subacute T10 compression fracture--pain control--PT/OT- high risk for stomach ulcer given prednisone, will hold off NSAIDs for now- topical lidocaine
Pulmonary fibrosis - stable, no worsening disease or interval infection--chronic-- continue prednisone 10 bid - continue azithromycin 250 mg M/W/-- patient does not want to start nintedanib until seeing pulmonary on 10/01, I advised her to call them
to discuss
Troponin elevation - No chest pain, no acute ECG changes, breathing back to normal. Perfusion stress imaging in January negative for reversible/non-reversible myocardial changes and low risk. No prior cardiac disease--apprec cards
HLD- continue her statin
DVT Proph - lovenox sq
Code status - Intubation/CPR for non-pulmonary etiology of arrest. No intubation for a primary pulmonary process.
Anticipated Discharge: > 48 hours
Subjective/Interval History
-
Date of Service: September 22, 2024
pt doing OK--c/o leg twitching
Objective Data
-
Labs:
Laboratory Results
09/22/24
08:06
WBC 7.4
Hgb 14.4
Hct 43.1
Plt Count 301
Sodium 136
Potassium 4.2
Chloride 104
Carbon Dioxide 24
BUN 16
Creatinine 0.7
Glucose 177 H
Calcium 9.4
Total Bilirubin 1.0
AST 21
ALT 20
Alkaline Phosphatase 84
Vital Signs:
max temp for 24 hours
09/21/24
20:25
Temp 97.7 F
Vital Signs
Temp Pulse Resp BP Pulse Ox
97.2 F 95 14 166/110 97
09/22/24 11:00 09/22/24 11:00 09/22/24 11:00 09/22/24 11:00 09/22/24 11:00
I&O
09/21/24 09/22/24 09/23/24
06:59 06:59 06:59
Intake Total 480 / 480
Balance 480 / 480
Review of Systems
-
All other systems: Reviewed and negative
Physical Exam
-
General: Well Developed, Well Nourished and No Apparent Distress
HEENT: Normocephalic and Atraumatic
Respiratory: Crackles
Cardiac: Regular Rhythm and S1/S2
GI: Soft, Nontender, Nondistended and Normal Bowel Sounds
Musculoskeletal: No Clubbing, No Cyanosis and No Edema
Neuro: Awake
[2024-09-22 15:00] VITALS: BP 140/90
[2024-09-22] MEDS: TYLENOL 650 MG PO ×2 (15:26→20:09)
[2024-09-22] MEDS: LOVENOX 40 MG SC (17:36)
[2024-09-22 20:00] VITALS: BP 107/67
[2024-09-22 23:34] VITALS: BP 110/69
[2024-09-23] MEDS: TYLENOL PO ×2 (01:22→04:58)
[2024-09-23 03:18] VITALS: BP 136/89
[2024-09-23 07:00] VITALS: BP 135/92
[2024-09-23 07:01] LABS: Hematocrit 42.9 % (37.0-47.0); Hemoglobin 14.6 g/dL (12.0-16.0); Mean Corpuscular Hgb 32.5 pg (27.0-31.0); Mean Corpuscular Volume 95.5 fL (81.0-99.0); Mean Platelet Volume 8.8 fL (7.4-10.4); Platelet Count 328 10^3/uL (130-400); Red Blood Cell Count 4.49 10^6/uL (4.20-5.40); Red Cell Dist. Width 14.3 % (11.5-14.5)
[2024-09-23 07:11] LABS: ALT (SGPT) 20 U/L (0-35); AST (SGOT) 22 U/L (14-36); Albumin 4.1 g/dl (3.5-5.0); Alkaline Phosphatase 85 U/L (38-126); Blood Urea Nitrogen 21 mg/dl (7-17); Calcium 9.5 mg/dl (8.4-10.2); Carbon Dioxide 23 mmol/L (22-30); Chloride 106 mmol/L (98-107); Estimated Creatinine Clearance 54 ml/min; Glucose 129 mg/dl (70-99); Magnesium 2.2 mg/dl (1.6-2.3); Potassium 4.4 mmol/L (3.5-5.1); Sodium 136 mmol/L (135-145); Total Bilirubin 1.2 mg/dl (0.2-1.3); eGFR > 60.00
[2024-09-23] MEDS: FIBERCON 625 MG PO ×2 (07:31→20:16)
[2024-09-23] MEDS: CARDIZEM CD 120 MG PO (07:31)
[2024-09-23] MEDS: PEPCID 20 MG PO (07:31)
[2024-09-23] MEDS: LIDOCAINE 4% PATCH TOPICAL (07:32)
[2024-09-23] MEDS: SENOKOT-S 1 TABLET PO ×2 (07:32→20:16)
[2024-09-23] MEDS: CRESTOR 5 MG PO (07:32)
[2024-09-23] MEDS: DELTASONE 20 MG PO ×2 (07:32→20:16)
[2024-09-23] MEDS: TYLENOL 650 MG PO ×4 (07:32→20:16)
[2024-09-23] MEDS: MIRALAX 17 GRAMS PO (07:40)
[2024-09-23] MEDS: DILAUDID 0.5 MG IV (07:40)
[2024-09-23 11:00] VITALS: BP 138/81
--- NOTE | 2024-09-23 12:16 | W.PN.CD ---
Today's Communication / Plan
-
- Continue Cardizem CD 120 mg daily.
- Patient can have updated echocardiogram as an outpatient as the patient wants to go home today.
Impression / Plan
-
84-year-old female with hypertension and interstitial pulmonary fibrosis/asthma presenting with back pain; found to have worsening T10 compression fracture.
Non-ischemic myocardial injury
Patient's cardiac troponin was minimally elevated at 0.051 in the setting of uncontrolled hypertension (blood pressure 153/102 on admission); likely acute nonischemic myocardial injury in the setting of uncontrolled hypertension.
Hypertensive urgency/sinus tachycardia
- Blood pressure elevated on admission and tachycardic; secondary to underlying orthopedic pain.
- Improved.
- Continue Cardizem CD 120 mg daily.
- Patient can have updated echocardiogram as an outpatient as the patient wants to go home today.
Hyperlipidemia
- Continue statin.
Other medical problems:
Idiopathic pulmonary fibrosis
Severe T10 compression fracture - management as per primary team.
Osteoporosis
GERD
Physical Exam
Vital Signs/Labs
Vital Signs
Temp Pulse Resp BP Pulse Ox
97.3 F 89 18 138/81 96
09/23/24 11:00 09/23/24 11:00 09/23/24 11:00 09/23/24 11:00 09/23/24 11:00
09/22/24 09/23/24 09/24/24
06:59 06:59 06:59
Actual Weight 70.931 kg
09/23/24 06:31
09/23/24 06:31
Magnesium 2.2 mg/dl (1.6-2.3) 09/23/24 06:31
Triglycerides 107 mg/dl (10-149) 09/22/24 08:06
LDL Cholesterol, Calc 121 mg/dl 09/22/24 08:06
VLDL Cholesterol, Calc 21 mg/dl (0-30) 09/22/24 08:06
HDL Cholesterol 69 mg/dl 09/22/24 08:06
LAB Results
09/21/24 09/21/24 09/22/24
12:51 18:34 00:42
Troponin I 0.035 H* 0.051 H* D 0.050 H*
Physical Exam
Constitutional: No acute distress and Comfortable
EENT: Anicteric
Cardiovascular: Rhythm & rate is regular, Pedal edema is absent, Systolic murmur absent and S1S2 is normal
Respiratory: Respiratory effort normal and Rhonchi Present (Diffuse)
GI: Soft
Neuro/Psych: AO x 3
Other: Skin (Warm, dry, intact)
Data Reviewed
-
Date of Service: September 23, 2024
EKG: Tracing Personally Visualized and interpreted (Telemetry: Sinus rhythm/sinus tachycardia)
Labs: Labs Reviewed by me
--- NOTE | 2024-09-23 13:11 | CM ---
CM reviewed chart, patient seen bedside with son, discussed PT recommendations of VN, patient agreeable, requesting referral to [facility], will place in [facility]. Patient reports she is likely for discharge tomorrow, will have transportation home from
family. CM will continue to follow for all discharge planning needs.
Plan; home with referral to [facility] pending acceptance
--- NOTE | 2024-09-23 13:38 | W.PN.HOSP.TC ---
Today's Communication/Plan
-
if pain controlled on oral meds--d/c home with VN in AM
Assessment / Plan
Assessment / Plan
pt is an 84 year old female
Back pain - Subacute T10 compression fracture--pain control--PT/OT- high risk for stomach ulcer given prednisone, will hold off NSAIDs for now- topical lidocaine, standing tylenol with PRN norco--wants to see how pain controlled without IVs prior to
d/c
Pulmonary fibrosis - stable, no worsening disease or interval infection--chronic-- continue prednisone 10 bid (increased to 20 mg BID by admitting team) - continue azithromycin 250 mg //-- patient does not want to start nintedanib until seeing
pulmonary on 10/01, I advised her to call them to discuss
Troponin elevation - No chest pain, no acute ECG changes, breathing back to normal. Perfusion stress imaging in January negative for reversible/non-reversible myocardial changes and low risk. No prior cardiac disease--apprec cards--further workup
as outpt
HLD- continue her statin
DVT Proph - lovenox sq
Code status - Intubation/CPR for non-pulmonary etiology of arrest. No intubation for a primary pulmonary process.
Anticipated Discharge: Within 24 hours
Subjective/Interval History
-
Date of Service: September 23, 2024
pt wants to go home--scared to go today
Objective Data
-
Labs:
Laboratory Results
09/23/24
06:31
WBC 7.0
Hgb 14.6
Hct 42.9
Plt Count 328
Sodium 136
Potassium 4.4
Chloride 106
Carbon Dioxide 23
BUN 21 H
Creatinine 0.7
Glucose 129 H
Calcium 9.5
Total Bilirubin 1.2
AST 22
ALT 20
Alkaline Phosphatase 85
Vital Signs:
max temp for 24 hours
09/22/24
23:34
Temp 98.0 F
Vital Signs
Temp Pulse Resp BP Pulse Ox
97.3 F 89 18 138/81 96
09/23/24 11:00 09/23/24 11:00 09/23/24 11:00 09/23/24 11:00 09/23/24 11:00
I&O
09/22/24 09/23/24 09/24/24
06:59 06:59 06:59
Intake Total 480 / 480 480 / 480
Balance 480 / 480 480 / 480
Review of Systems
-
All other systems: Reviewed and negative
Physical Exam
-
General: Well Developed, Well Nourished and No Apparent Distress
HEENT: Normocephalic and Atraumatic
Respiratory: Clear to Auscultation; Negative Wheezes, Rales or Rhonchi
Cardiac: Regular Rhythm and S1/S2; Negative Murmur
GI: Soft, Nontender, Nondistended and Normal Bowel Sounds
Musculoskeletal: No Clubbing, No Cyanosis and No Edema
Skin: Warm
Neuro: Awake
[2024-09-23 15:00] VITALS: BP 142/97
[2024-09-23] MEDS: LOVENOX 40 MG SC (17:04)
[2024-09-23 19:55] VITALS: BP 140/99
[2024-09-23 23:40] VITALS: BP 137/71
[2024-09-24] MEDS: NORCO 7.5/325 1 TABLET PO ×2 (00:21→10:31)
[2024-09-24] MEDS: TYLENOL PO ×2 (00:21→12:03)
[2024-09-24] MEDS: TYLENOL 650 MG PO ×3 (03:45→15:17)
[2024-09-24 03:57] VITALS: BP 132/78
[2024-09-24 07:46] VITALS: BP 124/86
[2024-09-24] MEDS: CARDIZEM CD 120 MG PO (08:14)
[2024-09-24] MEDS: FIBERCON 625 MG PO (08:14)
[2024-09-24] MEDS: DELTASONE 20 MG PO (08:14)
[2024-09-24] MEDS: PEPCID 20 MG PO (08:14)
[2024-09-24] MEDS: CRESTOR 5 MG PO (08:14)
[2024-09-24] MEDS: SENOKOT-S 1 TABLET PO (08:14)
[2024-09-24] MEDS: LIDOCAINE 4% PATCH TOPICAL (08:15)
[2024-09-24] MEDS: ZITHROMAX 250 MG PO (08:20)
[2024-09-24 08:22] LABS: Hematocrit 43.6 % (37.0-47.0); Hemoglobin 14.6 g/dL (12.0-16.0); Mean Corp Hgb Conc. 33.5 g/dL (33.0-37.0); Mean Corpuscular Hgb 32.2 pg (27.0-31.0); Mean Platelet Volume 8.6 fL (7.4-10.4); Platelet Count 332 10^3/uL (130-400); Red Blood Cell Count 4.54 10^6/uL (4.20-5.40); Red Cell Dist. Width 14.4 % (11.5-14.5); White Blood Cell Count 8.3 10^3/uL (4.8-10.8)
[2024-09-24 08:58] LABS: Blood Urea Nitrogen 20 mg/dl (7-17); Calcium 9.6 mg/dl (8.4-10.2); Carbon Dioxide 25 mmol/L (22-30); Chloride 103 mmol/L (98-107); Estimated Creatinine Clearance 47 ml/min; Glucose 156 mg/dl (70-99); Magnesium 2.1 mg/dl (1.6-2.3); Sodium 137 mmol/L (135-145); eGFR > 60.00
--- NOTE | 2024-09-24 10:08 | CM ---
Chart reviewed and case consultant met with patient this am and patient states that she is for possible discharge to home today, patient has been set up with [facility] visiting nurses, per patient family to transport her to home.
[facility] [phone]

Plan; Home with [facility] visiting nurses.
[2024-09-24 11:12] VITALS: BP 123/75
--- NOTE | 2024-09-24 13:11 | W.PN.HOSP.TC ---
Addendum entered and electronically signed by Bill Waggoner MD 09/24/24 14:16:
I saw and evaluated the patient. I reviewed the resident�s note and agree with findings and plan as documented in the resident�s note.
Back pain - Subacute T10 compression fracture--pain control--PT/OT- high risk for stomach ulcer given prednisone, will hold off NSAIDs for now- topical lidocaine, standing tylenol with PRN norco--pain is better controlled with Maxbass, patient
currently on 10 mg of Maxbass prescribed by pain specialist. PDMP reviewed. No narcotic prescription to be provided at discharge.
Pulmonary fibrosis - stable, no worsening disease or interval infection--chronic-- continue prednisone 10 bid (increased to 20 mg BID by admitting team) - continue azithromycin 250 mg //-- patient does not want to start nintedanib until seeing
pulmonary on 10/01, I advised her to call them to discuss
Troponin elevation - No chest pain, no acute ECG changes, breathing back to normal. Perfusion stress imaging in January negative for reversible/non-reversible myocardial changes and low risk. No prior cardiac disease--apprec cards--further workup
as outpt
HLD- continue her statin
DVT Proph - lovenox sq
Code status - Intubation/CPR for non-pulmonary etiology of arrest. No intubation for a primary pulmonary process.
More than 30 minutes spent in discharge including
Final examination of the patient
Summarizing hospital stay
Instructions for continuing care to all relevant caregivers
Preparation of discharge records, prescriptions, and referral forms
Total time spent (in minutes): 40 mins
Original Note:
Today's Communication/Plan
-
- stable on oral pain meds
- dc today
Assessment / Plan
Assessment / Plan
Assessment:
84yo F pm GERD, chronic LBP, spinal fusion (L3, 4, 5, S1), ILD admitted to [facility] 09/21 for unusual dyspnea and acutely worsening chronic LBP. No new neurological sx. SOB returned to baseline. CT lumbar spine positive for severe compression fracture of
T10.
Plan:
Acute on chronic LBP
Subacute T10 compression fx
- pain control
- PT/OT
- pain well controlled on PO meds
Pulmonary fibrosis
- stable
- cont prednisone 10mg BID
- cont azithromycin MWF
Troponin elevation
- no CP, no acute ECG changes
- breathing at baseline
- perfusion stress imaging in 02/08 neg for reversible/non-reversible myocardial changes and low risk
HLD
- cont statin
Diet: regular
DVT ppx: lovenox
Code status: FULL CODE
Anticipated Discharge: Today
Subjective/Interval History
-
Date of Service: September 24, 2024
Pt reports pain is well controlled. Pt reports 3 BM in last day.
Objective Data
-
Labs:
Laboratory Results
09/24/24 09/24/24
08:00 08:01
WBC 8.3
Hgb 14.6
Hct 43.6
Plt Count 332
Sodium 137
Potassium 5.0
Chloride 103
Carbon Dioxide 25
BUN 20 H
Creatinine 0.8
Glucose 156 H
Calcium 9.6
Vital Signs:
Vital Signs
Temp Pulse Resp BP Pulse Ox
97.4 F 80 22 123/75 97
09/24/24 11:12 09/24/24 11:12 09/24/24 11:12 09/24/24 11:12 09/24/24 11:12
I&O
09/23/24 09/24/24 09/25/24
06:59 06:59 06:59
Intake Total 480 / 480 960 / 960
Balance 480 / 480 960 / 960
Review of Systems
-
History Source: Patient
Constitutional: Reports No Symptoms
Respiratory: Reports No Symptoms
Cardiac: Reports No Symptoms
Abdomen/GI: Reports No Symptoms
Musculoskeletal: Reports No Symptoms
Neuro: Reports No Symptoms
Physical Exam
-
General: Well Developed, Well Nourished and Obese
HEENT: Normocephalic and Atraumatic
Respiratory: Clear to Auscultation and Non Labored Respirations
Cardiac: Regular Rhythm and S1/S2
GI: Soft, Nontender, Nondistended and Normal Bowel Sounds
Musculoskeletal: No Clubbing, No Cyanosis and No Edema
Skin: Warm and Dry
Neuro: Awake, Alert and Oriented
Psych: Calm
--- NOTE | 2024-09-24 13:11 | W.DCSUMMARY ---
Discharge Summary
Discharge Data
Date of Admission: 09/21/24
Date of Discharge: 09/24/24
-
Pending Results: No
Hospital Course
Discharging Physician : Dr. Missy Hansen, Dr. Bill Waggoner
Disposition : home w homecare
Primary care physician : Carmen Ayala
Principal Discharge diagnosis : subacute T10 compression fx
Chronic Discharge diagnosis : GERD, chronic LBP, spinal fusion (L3, 4, 5, S1), ILD
Hospital Course : 84yo F pmh GERD, chronic LBP, spinal fusion (L3, 4, 5, S1), ILD admitted to [facility] 09/21 for unusual dyspnea and acutely worsening chronic LBP. No new neurological sx. SOB returned to baseline. CT lumbar spine positive for severe
compression fracture of T10. Troponins elevated 0.051, cardiology consulted. Determined pt had acute nonischemic myocardial injury. Started on cardizem CD 120mg daily. Plan for outpt echo. Pt's pain well controlled on PO pain meds. Hemodynamically
stable, afebrile.
Important imaging findings :
Chest CT 09/21:
No CTA evidence for an acute pulmonary thromboembolism within the limitations above.
Pulmonary fibrosis with a similar imaging appearance compared to previous examinations. No definite superimposed pulmonary process by CT.
Lumbar spine CT 09/21: Severe compression fracture of T10 with continued progression of loss of height compared to the CT from 08/15/2024. Stable moderate compression fracture of L1. Both compression fractures again show some retropulsion of fracture
fragments.
Procedure findings : n/a
Discharge Plan
-
Patient Disposition: Home with Home Care
Discharge Diagnosis/Procedures: T10 compression fracture, pain
Condition: Fair
Diet: Regular
Activity: As tolerated
Driving Restrictions: No driving for 1 week
Bathing Restrictions: OK to Shower
Referrals:
Adi Davalos MD [Active, Anesthesiology] - in one week
Carmen Ayala MD [Family Provider, Family Practice] - in one week
Prescriptions:
New
lidocaine 4 % Adhesive Patch,Medicated
1 patch topical DAILY Qty: 5 0RF
polyethylene glycol 3350 17 gram Powder In Packet
17 g PO DAILYPRN PRN (Reason: constipation) Qty: 14 0RF
Continued
azithromycin 250 mg Tablet
250 mg PO MOWEFR
prednisone 20 mg Tablet
20 mg PO BID
Patient Comments:
take 20mg until next appointment
alendronate [Fosamax] 70 mg Tablet
70 mg PO SA
hydrocodone-acetaminophen 10-325 mg Tablet
1 tab PO Q6HPRN PRN (Reason: severe pains)
calcium polycarbophil [FiberCon] 625 mg Tablet
625 mg PO BID
rosuvastatin [Crestor] 10 mg Tablet
5 mg PO DAILY
Ofev 150 mg Capsule
150 mg PO Q12H
Journavx 50 mg Tablet
50 mg PO BID
Discharge Orders:
Discharge Patient (As Directed); Ordered 09/24/24
Ordered By: Bill Waggoner
Discharge Date and Time
Print Language: SINHALA
[2024-09-24 15:00] VITALS: BP 136/75
== END 2024-09-24 16:23 | disposition home health service (06) ==
LOC: 4 WEST ACU 19:17
PROVIDERS: Clinical Nurse Specialist Family Health; Internal Medicine; Physician Assistant Medical; ADMITTING PHYSICIAN Internal Medicine; ATTENDING PHYSICIAN Hospitalist; CONSULT PHYSICIAN Internal Medicine; EMERGENCY PHYSICIAN Emergency Medicine; FAMILY PHYSICIAN Family Medicine
DX: M80.08XA Age-related osteoporosis with current pathological fracture, vertebra(e), initial encounter for fracture (principal); R06.02 Shortness of breath; I5A Non-ischemic myocardial injury (non-traumatic); K21.9 Gastro-esophageal reflux disease without esophagitis; G89.29 Other chronic pain; J84.112 Idiopathic pulmonary fibrosis; Z98.1 Arthrodesis status
CPT/HCPCS: 71275; 72131; 80048; 80053; 80061; 83735; 84484; 85025; 85027; 93005; 96361; 96374; 96376; 97116; 97162; 97165; 97530; 99285; G0378; Q9967

== ENCOUNTER → 2025-03-15 08:56 | Outpatient (REF) | payer OTHER, SELFPAY | LOC: HWRAD 08:56 | PROVIDERS: ATTENDING PHYSICIAN Psychiatry & Neurology Neurology; FAMILY PHYSICIAN Family Medicine | DX: M54.14 Radiculopathy, thoracic region (principal); M54.16 Radiculopathy, lumbar region | CPT/HCPCS: 72128; 72131 ==

== ENCOUNTER 2025-04-04 06:30 | Day surgery (SDC) | payer OTHER, SELFPAY | END 2025-04-04 15:23 | disposition home or self-care (01) | LOC: GI 06:30 | PROVIDERS: ATTENDING PHYSICIAN Internal Medicine | DX: R13.10 Dysphagia, unspecified (principal); K44.9 Diaphragmatic hernia without obstruction or gangrene; K22.2 Esophageal obstruction; K29.70 Gastritis, unspecified, without bleeding; K22.9 Disease of esophagus, unspecified; K31.89 Other diseases of stomach and duodenum | CPT/HCPCS: 43249; 43239; 88305; 88342 ==